=== PATIENT | male | born 1940 | race African-American/Black ===

== ENCOUNTER 2019-12-17 13:13 | Emergency (ER) | payer MEDICARE, MEDICAID ==
[~2019-12-17] VITALS: Ht 172.7 cm; Wt 78.0 kg
[~2019-12-17 13:13] MED LIST: TAMS-11
[2019-12-17] MEDS ORDERED: MORPHINE SULFATE 4 MG/ML CPJ (NOT FOR IM USE) IV STA (13:54)
[2019-12-17 14:21] LABS: BASOPHILS % 0.5 % (0.0-2.0); EOSINOPHILS % 3.5 % (0.0-5.0); HEMATOCRIT. 36.4 % (42.0-52.0); HEMOGLOBIN. 12.5 g/dL (14.0-18.0); LYMPHOCYTES % 18.7 % (20.0-50.0); MEAN CORPUSCULAR VOLUME 90.2 fL (80.0-94.0); MEAN PLATELET VOLUME 8.9 fl (7.4-10.4); MONOCYTES % 11.9 % (2.0-8.0); NEUTROPHILS % 65.4 % (40.0-76.0); PLATELET 185 x1000/uL (130-400); RED BLOOD CELL COUNT 4.04 mill/uL (4.7-6.1)
[2019-12-17 14:27] LABS: CHLORIDE 109 mEq/L (98-107)
[2019-12-17 14:30] LABS: PROTHROMBIN TIME 10.9 sec (9.6-11.0)
[2019-12-17 17:45] VITALS: BP 155/71
== END 2019-12-17 17:51 | disposition home or self-care (01) ==
LOC: ER 13:13
DX: N40.0 Benign prostatic hyperplasia without lower urinary tract symptoms (principal); N13.30 Unspecified hydronephrosis; K86.89 Other specified diseases of pancreas; Z98.890 Other specified postprocedural states
CPT/HCPCS: 36415; 71275; 74174; 80053; 83690; 84484; 85025; 85610; 93005; 96374; 99285; J2270

== ENCOUNTER 2019-12-17 23:36 | Emergency (ER) | payer MEDICAID, MEDICARE, OTHER ==
[~2019-12-17] VITALS: Ht 167.6 cm; Wt 75.0 kg
[2019-12-18 04:18] LABS: BASOPHILS % 0.2 % (0.0-2.0); EOSINOPHILS % 5.5 % (0.0-5.0); HEMATOCRIT. 41.1 % (42.0-52.0); HEMOGLOBIN. 13.8 g/dL (14.0-18.0); LYMPHOCYTES % 24.6 % (20.0-50.0); MEAN CORPUSCULAR HEMOGLOBIN 30.8 pg (28.0-32.0); MEAN CORPUSCULAR VOLUME 91.4 fL (80.0-94.0); MEAN PLATELET VOLUME 8.8 fl (7.4-10.4); MONOCYTES % 12.7 % (2.0-8.0); PLATELET 204 x1000/uL (130-400); RED CELL DISTRIBUTION WIDTH 14.1 % (11.6-14.6)
[2019-12-18 04:29] LABS: PARTIAL THROMBOPLASTIN TIME 32.3 sec (23.4-31.0)
[2019-12-18 05:30] VITALS: BP 154/66
== END 2019-12-18 08:41 | disposition home or self-care (01) ==
LOC: ER 23:36
DX: N40.0 Benign prostatic hyperplasia without lower urinary tract symptoms (principal); R31.9 Hematuria, unspecified; T83.098A Other mechanical complication of other urinary catheter, initial encounter
CPT/HCPCS: 36415; 85025; 99283; 99284

== ENCOUNTER 2019-12-21 13:47 | Emergency (ER) | payer MEDICARE ==
[~2019-12-21] VITALS: Ht 162.6 cm; Wt 71.0 kg
[2019-12-21] MEDS ORDERED: GABAPENTIN 300MG CAPSULE PO ONE (16:45)
[2019-12-21 16:56] LABS: CLARITY URINE CLEAR (CLEAR); COLOR URINE YELLOW (YELLOW); KETONES URINE NEGATIVE (NEGATIVE); LEUKOCYTE ESTERASE URINE NEGATIVE (NEGATIVE); NITRITE URINE NEGATIVE (NEGATIVE); OCCULT BLOOD URINE NEGATIVE (NEGATIVE); PROTEIN URINE NEGATIVE (NEGATIVE); SPECIFIC GRAVITY URINE 1.008 (1.005-1.030); UROBILINOGEN URINE 0.2 E.U./dL (0.2-1.0)
[2019-12-21] MEDS ORDERED: KETOROLAC 60MG/2ML VIAL IM ONE (17:15)
[2019-12-21 17:46] VITALS: BP 178/86
[2019-12-21 18:26] LABS: CLARITY URINE TURBID (CLEAR); COLOR URINE ORANGE (YELLOW); KETONES URINE NEGATIVE (NEGATIVE); LEUKOCYTE ESTERASE URINE 2+ (NEGATIVE); NITRITE URINE POSITIVE (NEGATIVE); OCCULT BLOOD URINE 3+ (NEGATIVE); PH URINE 5.5 (4.5-8.0); PROTEIN URINE 3+ (NEGATIVE); SPECIFIC GRAVITY URINE 1.023 (1.005-1.030)
== END 2019-12-21 19:21 | disposition home or self-care (01) ==
LOC: ER 13:47
DX: N40.1 Benign prostatic hyperplasia with lower urinary tract symptoms (principal); N39.0 Urinary tract infection, site not specified; R33.9 Retention of urine, unspecified; R39.15 Urgency of urination; Z98.41 Cataract extraction status, right eye
CPT/HCPCS: 81003; 82962; 87077; 87086; 87186; 96372; 99283; J1885

== ENCOUNTER 2019-12-27 13:55 | Emergency (ER) | payer MEDICARE ==
[~2019-12-27] VITALS: Ht 165.1 cm; Wt 75.0 kg
[2019-12-27 13:57] VITALS: BP 141/71
[2019-12-27 17:12] LABS: CLARITY URINE CLEAR (CLEAR); COLOR URINE YELLOW (YELLOW); KETONES URINE NEGATIVE (NEGATIVE); LEUKOCYTE ESTERASE URINE 2+ (NEGATIVE); NITRITE URINE NEGATIVE (NEGATIVE); OCCULT BLOOD URINE 3+ (NEGATIVE); PH URINE 6.5 (4.5-8.0); PROTEIN URINE TRACE (NEGATIVE); SPECIFIC GRAVITY URINE 1.006 (1.005-1.030); UROBILINOGEN URINE 0.2 E.U./dL (0.2-1.0)
== END 2019-12-27 17:55 | disposition home or self-care (01) ==
LOC: ER 13:55
DX: L29.9 Pruritus, unspecified (principal)
CPT/HCPCS: 81003; 87077; 87186; 99283